=== PATIENT | female | born 2000 | race Caucasian/White ===

== ENCOUNTER 2024-12-08 07:04 | Outpatient (CLI) | payer OTHER, SELFPAY ==
--- NOTE | 2024-12-08 07:15 | CRLHL7_ITS ---
For Patients: As a result of the Century Cures Act, medical imaging exams and procedure reports are released immediately into your electronic medical record. You may view this report before your referring provider. If you have questions, please contact your health care provider. OB ULTRASOUND LESS THAN 14 WEEKS, 12/08/2024 CLINICAL HISTORY: Size and dates. TECHNIQUE: Real time joseph scale imaging of the fetus was performed. Transvaginal imaging performed. Transvaginal ultrasound of the pelvis was performed to better evaluate the genitourinary organs such as the ovaries and/or endometrium. COMPARISON: None. FINDINGS: Imaging: TV. LMP: 10/18/2024. CASANDRA by LMP: 07/25/2024. GA: 7 weeks 2 days. CRL: 0.26 cm, 5 weeks 6 days. CASANDRA 08/04/2025. FHR: 115 bpm. GEST SAC: 1.54 cm, appears WNL. YOLK SAC: 2.94 mm. RIGHT OV: 3.77 x 1.91 x 3.02 cm. LEFT OV: 2.56 x 4.20 x 2.68 cm. CL. IMPRESSION: 1. Single living intrauterine measures 5 weeks 6 days with sonographic due date 08/04/2025. 2. heart rate 115 bpm. Follow-up in two weeks should be considered. Yevgeniy Marie M.D. Diagnostic Radiologist [email or web address] Transcribed: 9:53 am DW/Dictated by: Yevgeniy Marie MD @ 12/08/2024 9:41:00 AM DW/Dictated by: Yevgeniy Marie MD @ 12/08/2024 9:41:00 AM (Electronically Signed)
== END 2024-12-08 07:05 | disposition home or self-care (01) ==
LOC: US 07:05
PROVIDERS: PCP Physician Assistant; Visit Provider Physician Assistant
DX: Z34.91 Encounter for supervision of normal pregnancy, unspecified, first trimester (principal); Z3A.01 Less than 8 weeks gestation of pregnancy
CPT/HCPCS: 76817

== ENCOUNTER 2024-12-22 12:09 | Outpatient (CLI) | payer OTHER, SELFPAY ==
--- NOTE | 2024-12-22 12:15 | CRLHL7_ITS ---
For Patients: As a result of the Century Cures Act, medical imaging exams and procedure reports are released immediately into your electronic medical record. You may view this report before your referring provider. If you have questions, please contact your health care provider. CASANDRA by US: 08/04/2025. GA: 7w, 6d. INDICATION: Follow-up viability. CRL: 1.8 cm, 8w 2d. CASANDRA 08/01/2025. FHR: 185 bpm (183-185). GESTATIONAL SAC: 4.2 cm appears within normal limits. YOLK SAC: 3.6 mm, appears within normal limits. RIGHT OVARY: 3.4 x 1.8 x 2.9 cm. LEFT OVARY: 4.1 x 2.1 x 2.3 cm, CL. IMPRESSION: 1. Single living intrauterine measures 8 weeks 2 days with sonographic due date 08/01/2025. 2. heart rate 184 bpm. 3. Corpus luteal cyst left ovary. 4. Right inferior subchorionic hemorrhage measures 1.9 x 0.5 x 2.5 cm. Yevgeniy Marie M.D. Diagnostic Radiologist [email or web address] bM/Dictated by: Yevgeniy Marie MD @ 12/22/2024 8:52:00 PM (Electronically Signed)
== END 2024-12-22 12:10 | disposition home or self-care (01) ==
PROVIDERS: PCP Physician Assistant; Visit Provider Physician Assistant
DX: O34.81 Maternal care for other abnormalities of pelvic organs, first trimester (principal); N83.12 Corpus luteum cyst of left ovary; O20.9 Hemorrhage in early pregnancy, unspecified; Z3A.08 8 weeks gestation of pregnancy
CPT/HCPCS: 76817

== ENCOUNTER 2024-12-22 13:13 | Outpatient (CLI) | payer MEDICAID, SELFPAY ==
[2024-12-22 17:44] LABS: Chlamydia DNA Amplified* NOT DETECTED (No Detected); GC DNA Amplified* NOT DETECTED (No Detected)
== END 2024-12-22 13:14 | disposition home or self-care (01) ==
PROVIDERS: PCP Physician Assistant; Visit Provider Physician Assistant
DX: Z34.91 Encounter for supervision of normal pregnancy, unspecified, first trimester (principal)
CPT/HCPCS: 83020; 83021; 85660; 86592; 86703; 86704; 86706; 86762; 86787; 86803; 86850; 86900; 86901; 87086; 87340; 87491; 87591